=== PATIENT | female | born 1990 | race Caucasian/White ===

== ENCOUNTER 2017-01-23 02:58 | Emergency (ER) | payer SELFPAY ==
[~2017-01-23] VITALS: Ht 170.2 cm; Wt 52.8 kg
[2017-01-23 03:07] VITALS: BP 146/67
[2017-01-23] MEDS ORDERED: LORazepam 2 MG/ML VIAL IM ONE (03:25)
--- NOTE | 2017-01-23 03:35 | NUR ---
PATIENT AMBULATED TO ER BED 7.
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
--- NOTE | 2017-01-23 03:45 | NUR ---
Patient being evaluated by physician at bedside.
[2017-01-23 04:52] VITALS: BP 128/60
--- NOTE | 2017-01-23 04:53 | NUR ---
Patient discharged with v/s stable. Written and verbal after care instructions given and explained. Patient alert, oriented and verbalized understanding of instructions. Ambulatory with steady gait. All questions addressed prior to discharge. ID band removed. Patient advised to follow up with PMD. NO Rx WERE given. Patient educated on indication of medication including possible reaction and side effects. Opportunity to ask questions provided and answered.
== END 2017-01-23 04:53 | disposition home or self-care (01) ==
LOC: MED 02:58
DX: F14.10 Cocaine abuse, uncomplicated (principal); R03.0 Elevated blood-pressure reading, without diagnosis of hypertension
CPT/HCPCS: 96372; 99283; J2060

== ENCOUNTER 2017-10-11 18:27 | Emergency (ER) | payer SELFPAY ==
--- NOTE | 2017-10-11 19:07 | NUR ---
CALLED AT THE LOBBY TWICE, NO ANSWER, LWBS
== END 2017-10-11 19:07 | disposition left against medical advice (07) ==
LOC: MED 18:27
DX: Z53.21 Procedure and treatment not carried out due to patient leaving prior to being seen by health care provider (principal)

== ENCOUNTER 2018-10-09 17:55 | Emergency (ER) | payer OTHER ==
[~2018-10-09] VITALS: Ht 162.6 cm; Wt 66.8 kg
[2018-10-09 18:01] VITALS: BP 148/92
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
--- NOTE | 2018-10-09 19:01 | NUR ---
ULTRASOUND AT BEDSIDE AT THIS TIME.
--- NOTE | 2018-10-09 19:09 | NUR ---
Pt report given to TASNEEM TORRES . Transfer of care at this time.
--- NOTE | 2018-10-09 19:10 | NUR ---
RECEIVED REPORT FROM AM NURSE. PT LAYING IN BED, RR EVEN AND UNLABORED. ALL NEEDS MET.
--- NOTE | 2018-10-09 19:16 | NUR ---
Pallavi nicole in [facility] - 10/09/18 at 1917 by CHUYITA Ultrasound at bedside.
[2018-10-09 19:24] LABS: APPEARANCE,URINE CLEAR (CLEAR); BILIRUBIN,URINE NEGATIVE (NEGATIVE); BLOOD, URINE NEGATIVE (NEGATIVE); COLOR,URINE YELLOW (YELLOW); LEUKOCYTE ESTERASE ,URINE NEGATIVE (NEGATIVE); NITRITE, URINE NEGATIVE (NEGATIVE); PH,URINE 7.5 (5.0-9.0); UGLUCOSE NEGATIVE (NEGATIVE)
[2018-10-09 19:38] LABS: BASOPHILS % (AUTO) 0.4 % (0.0-2.0); EOSINOPHILS # (AUTO) 0.1 K/uL (0-0.4); EOSINOPHILS % (AUTO) 0.8 % (0.0-4.0); HEMATOCRIT 41.5 % (36-48); LYMPHOCYTES # (AUTO) 1.7 K/uL (2.5-16.5); LYMPHOCYTES % (AUTO) 14.9 % (20.5-51.1); MEAN CORPUSCULAR HEMOGLOBIN 30 pg (27-31); MEAN CORPUSCULAR HGB CONC 34 g/dL (33-37); MEAN CORPUSCULAR VOLUME 88.1 fL (80-94); MONOCYTES # (AUTO) 0.5 K/uL (0.8-1.0); MONOCYTES % (AUTO) 4.5 % (1.7-9.3); NEUTROPHILS # (AUTO) 8.8 K/uL (1.8-7.7); NEUTROPHILS % (AUTO) 79.4 % (42.2-75.2); PLATELET COUNT (AUTO) 318 K/uL (140-450); RED BLOOD CELL COUNT(AUTO) 4.71 MIL/uL (4.20-5.40); WHITE BLOOD COUNT (AUTO) 11.1 K/uL (4.8-10.8)
--- NOTE | 2018-10-09 20:19 | NUR ---
Dr. Vieira evaluating patient at bedside.
[2018-10-09 20:30] VITALS: BP 113/80
--- NOTE | 2018-10-09 20:30 | NUR ---
Patient discharged with v/s stable. Written and verbal after care instructions given and explained. Patient verbalized understanding. Ambulatory with steady gait. All questions addressed prior to discharge. Advised to follow up with PMD.
== END 2018-10-09 20:30 | disposition home or self-care (01) ==
LOC: MED 17:55
DX: O26.891 Other specified pregnancy related conditions, first trimester (principal); R10.2 Pelvic and perineal pain
CPT/HCPCS: 36415; 76817; 81003; 81025; 84702; 85025; 86900; 86901; 99284; Q0092

== ENCOUNTER 2018-10-24 15:36 | Emergency (ER) | payer OTHER ==
[~2018-10-24] VITALS: Ht 170.2 cm; Wt 65.3 kg
--- NOTE | 2018-10-24 15:36 | NUR ---
[facility]J MURCIA, CURRENTLY AWAITING BED
[2018-10-24 15:39] VITALS: BP 149/105
--- NOTE | 2018-10-24 15:53 | NUR ---
[employer] LAUREN SPEAKING WITH PT
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
--- NOTE | 2018-10-24 17:10 | NUR ---
PT. RESTING COMFORTABLY IN BED, RR EVEN AND UNLABORED. VSS. WILL CONTINUE TO MONITOR.
[2018-10-24] MEDS ORDERED: ACETAMINOPHEN EXTRA STRENGTH 500 MG TAB PO ONE (18:10)
--- NOTE | 2018-10-24 19:15 | NUR ---
Pt report given to TASNEEM TORRES . Transfer of care at this time.
--- NOTE | 2018-10-24 19:15 | NUR ---
Pallavi nicole in [facility] - 10/24/18 at 1918 by EDWARD Pt report given to TASNEEM MACKENZIE . Transfer of care at this time.
--- NOTE | 2018-10-24 19:30 | NUR ---
RECEIVED REPORT FROM AM NURSE. PT LAYING IN BED, RR EVEN AND UNLABORED. PT EXPRESSING TO LEAVE WITHOUT BEING SEEN, PT STATED "I FEEL FINE NOW." PT AGREED TO STAY UNTIL MD SEES HER.
--- NOTE | 2018-10-24 19:47 | NUR ---
DR. HORNE AT BEDSIDE FOR EVALUATION.
--- NOTE | 2018-10-24 20:05 | NUR ---
PT VERBALLY DISCHARGED BY DR HORNE, PT LEFT WITHOUT DISCHARGE INSTRUCTIONS.
--- NOTE | 2018-10-24 20:05 | NUR ---
Pallavi nicole in [facility] - 10/24/18 at 2014 by LEILA PATIENT ELOPED FROM FACILITY. DISCHARGE INSTRUCTIONS NOT GIVEN TO PATIENT. DR. HORNE NOTIFIED.
== END 2018-10-24 20:05 | disposition home or self-care (01) ==
LOC: MED 15:36
DX: O9A.311 Physical abuse complicating pregnancy, first trimester (principal); O26.891 Other specified pregnancy related conditions, first trimester; M54.2 Cervicalgia; R10.30 Lower abdominal pain, unspecified; R68.89 Other general symptoms and signs; Z3A.09 9 weeks gestation of pregnancy; Y04.2XXA Assault by strike against or bumped into by another person, initial encounter; Y93.89 Activity, other specified; Y92.009 Unspecified place in unspecified non-institutional (private) residence as the place of occurrence of the external cause; Y99.8 Other external cause status
CPT/HCPCS: 81002; 81025; 99282; 99283